=== PATIENT | male | born 1965 | race African-American/Black ===

== ENCOUNTER 2022-10-02 10:29 | Emergency (ER) | payer MEDICAID ==
[~2022-10-02] VITALS: Ht 182.9 cm; Wt 95.0 kg
[2022-10-02] MEDS ORDERED: DEXAMETHASONE 4MG TABLET PO ONE (11:00)
[2022-10-02] MEDS ORDERED: IPRATROPIUM/ALBUTEROL 0.5-3(2.5)MG/3ML NEB HHN ONE (11:00)
[2022-10-02 11:26] LABS: BG BASE EXCESS 2.6 mmol/L (-2.0-2.0); BG CARBOXYHEMOGLOBIN 2.3 % (0.5-1.5); BG DEOXYHEMOGLOBIN 2.1 % (0.0-5.0); BG HCO3 ACT 28.8 mmol/L (22.0-26.0); BG METHEMOGLOBIN 0.3 % (0.0-1.5); BG OXYGEN SATURATION 97.8 % (92.0-98.5); BG OXYHEMOGLOBIN 95.3 % (94.0-97.0); BG PCO2 50.2 mmHg (35.0-45.0); BG PH 7.376 (7.350-7.450); BG PO2 104.5 mmHg (75.0-100.0); BG SAMPLE SITE RIGHT RADIAL; BG VENT MODE NASAL CANNULA
[2022-10-02 12:41] LABS: BASOPHILS % 0.6 % (0.0-2.0); HEMATOCRIT. 48.7 % (42.0-52.0); HEMOGLOBIN. 15.8 g/dL (14.0-18.0); LYMPHOCYTES % 26.4 % (20.0-50.0); MEAN CORPUSCULAR HEMOGLOBIN 29.1 pg (28.0-32.0); MEAN CORPUSCULAR VOLUME 89.9 fL (80.0-94.0); MEAN PLATELET VOLUME 9.6 fl (7.4-10.4); PLATELET 218 x1000/uL (130-400); RED BLOOD CELL COUNT 5.42 mill/uL (4.7-6.1); RED CELL DISTRIBUTION WIDTH 15.4 % (11.6-14.6)
[2022-10-02 13:08] LABS: CHLORIDE 103 mEq/L (98-107)
[2022-10-02] MEDS ORDERED: ALBU18HF2 IH (16:07)
[2022-10-02] MEDS ORDERED: DOXY100C5 MT (16:22)
[2022-10-02 16:25] VITALS: BP 157/102
== END 2022-10-02 16:45 | disposition home or self-care (01) ==
LOC: ER 10:41
DX: R06.02 Shortness of breath (principal); R05.9 Cough, unspecified; J44.9 Chronic obstructive pulmonary disease, unspecified; E78.00 Pure hypercholesterolemia, unspecified; I10 Essential (primary) hypertension
CPT/HCPCS: 36415; 36600; 71045; 80053; 82375; 82805; 83880; 84484; 85025; 93005; 94640; 99285; 99406; J8540; Z7610